=== PATIENT | male | born 1980 | race Caucasian/White ===

== ENCOUNTER 2024-07-11 12:14 | Emergency (ER) | payer OTHER, SELFPAY ==
[2024-07-11 12:38] VITALS: BP 135/89; PULSE 67; RESP 16; TEMP 36.9; O2SAT 98; BMI 28.5
--- NOTE | 2024-07-11 12:48 | ED_ITS ---
HPI - General Adult General Chief complaint: Extremity Problem Stated complaint: Finger injury Time Seen by Provider: 07/11/24 12:47 Source: patient and RN notes reviewed Mode of arrival: ambulatory Limitations: no limitations History of Present Illness ED Provider: Henny Bowers PA-C HPI narrative: This is a 18-mivl-ucj-male who presents to the ER with complaints of right fourth digit swelling and drainage. Pt states that several months ago he had burned his finger. Ever since, he has had occasional episodes of increased pain, swelling and drainage. He states that this morning he noticed increased redness, pain, swelling and drainage. No fevers or chills. His tdap is UTD. No other complaints or concerns at this time. MD complaint: Finger swelling Onset (ago): hour(s) Quality: aching Pain Consistency: constant Relieving factors: none Associated symptoms: denies other symptoms Treatments prior to arrival: none Related Data Previous Rx's ?Medication ?Instructions ?Recorded cephalexin 500 mg capsule 500 mg PO QID 5 days #20 caps 07/11/24 doxycycline hyclate 100 mg capsule 100 mg PO BID 5 days #10 caps 07/11/24 Allergies Allergy/AdvReac Type Severity Reaction Status Date / Time Iodinated Contrast Media Allergy Unknown Verified 07/11/24 12:40 [Contrast Dye] Review of Systems Review of Systems: Yes all other systems are reviewed and are negative [facility] Social History Social History Advance Directives: No Advance Directives Information Provided: No Physical Exam ED Vital Signs: Vital Signs - 24 hr 07/11/24 12:38 Temperature 98.4 F Pulse Rate 67 Respiratory Rate 16 Blood Pressure 135/89 Pulse Oximetry 98 Oxygen Delivery Method Room Air BMI result Body Mass Index 28.5 Const Other: General: Awake, alert, and oriented X3. No acute distress. HEENT: Normal inspection CVS: Normal heart rate and rhythm. Pulses normal. Respiratory: No respiratory distress Skin: R fourth digit, alonog the naialbed, there is slight edema and erythema, most pronouced at the laterral nailborder, actively draining. Neuro: Oriented X 3. No motor deficit. No sensory deficit. Medications Administered Discontinued Medications Generic Name Dose Route Start Last Admin Trade Name Freq PRN Reason Stop Dose Admin Cephalexin HCl 500 mg 07/11/24 12:58 07/11/24 13:19 Cephalexin 500 Mg Capsule PO 07/11/24 12:59 500 mg ONCE ONE Administration Doxycycline Monohydrate 100 mg 07/11/24 12:58 07/11/24 13:19 Doxycycline Monohydrate 100 Mg Capsule PO 07/11/24 12:59 100 mg ONCE ONE Administration Medical Decision Making Medical Decision Making [facility] Narrative: 43 y/o M here with R 4th digit swelling and drainage since this AM. Pt has had recurent nailbed infections that come and go according to patient. On arrival VSS. Nailbed is erythematous and mildly edematous with purulent green drainage expressed from the lateral nail border. DDx including paronychia, cellulitis, contact dermatitis. Less likely oosteomyelitis. Finger is already draining > no area of fluctuance to drain today. Will tx w doxycycline. Given return preca utions. Stable for d/c. Differential Diagnosis Differential Diagnoses: The differential diagnosis associated with the presentation includes see above Discharge Plan Discharge Clinical Impression: Paronychia of finger Patient Disposition: Home, Self-Care Instructions: Paronychia (ED), Cellulitis (ED) Additional Instructions: You were seen in the emergency department due to finger infection. You need to soak your finger multiple times a day with warm soapy water. Keep fingernail covered while you are at work. Take prescribed antibiotic as directed. Keflex to be taken 4 times a day, doxycycline twice a day. If any new or worsening symptoms occur including but not limited to worsening redness, swelling, please seek emergent care. Prescriptions: New doxycycline hyclate 100 mg capsule 100 mg PO BID 5 Days Qty: 10 0RF cephalexin 500 mg capsule 500 mg PO QID 5 Days Qty: 20 0RF Interventions: ED Discharge Assessment Last Done: 07/11/24 13:19 Discharge Date/Time: 07/11/24 13:20 Print Language: Turkmen
[2024-07-11 13:19] VITALS: BP 135/89; PULSE 67; RESP 16; TEMP 36.9; O2SAT 98
[2024-07-11] MEDS: Doxycycline Monohydrate 100 MG CAPSULE PO (13:19)
[2024-07-11] MEDS: cephALEXin 500 MG CAPSULE PO (13:19)
--- OUTSIDE RECORDS SUMMARY | 2024-07-11 16:12 | XMS_ITS | Encounter Summary ---
Author Organization [facility] Address [address] [place] [address] Care Team Providers Care Reverberatory Furnace Supervisor Name Role Phone Wong Prater MD Primary Care Provider [phone] Reason for Referral * Consultation (Routine) - Authorized Specialty Diagnoses / Procedures Referred By Contac t Referred To Contact Otolaryngology Diagnoses Post-nasal drip Dayna Stone PA [address], [place] Phone: tel: fax: [facility] [address] [place] [address] Phone: tel: fax: Referral ID Status Reason Start Date Expiration Date Visits Requested Visits Authorized [id number] Authorized Specialty Services Required 06/26/2024 06/26/2025 1 1 * Consultation (Routine) - Denied Specialty Diagnoses / Procedures Referred By Contac t Referred To Contact Internal Medicine Diagnoses Hydrocele in adult Dayna Stone PA [address], [place] Phone: tel: fax: Dayna Stone PA [address], [place] Phone: tel: fax: Referral ID Status Reason Start Date Expiration Date V isits Requested Visits Authorized [id number] Denied Specialty Services Required 06/26/2024 06/26/2025 1 0 * Consultation (Routine) - Authorized Specialty Diagnoses / Procedures Referred By George rogers Referred To Contact Orthopaedics Diagnoses Neck pain Dayna Stone PA [address] [place] [address] Phone: tel: fax: [facility] [address] [facility] [address] [place] [address] Phone: tel: fax: Referral ID Status Reason Start Date Expiration Date Visits Requested Visits Authorized [id number] Authorized Specialty Services Required 06/26/2024 06/26/2025 1 1 Reason for Visit * Reason Comments Anxiety Encounter Details Date Type Department Care Team (Late st Contact Info) Description 06/25/2024 11:00 AM EST Office Visit Adult Medicine - [place] [address] [place] [address] Dayna Stone PA [address] [place] [address] Anxiety (Primary Dx); Shortness of breath; Acute intractable tension-type headache; Neck pain; Post-nasal drip; Hydrocele in adult Social History Tobacco Use Types Packs/Day Years Used Date Smoking Tobacco: Never Smokeless Tobacco: Current Tobacco Cessation:Ready to Q uit: Not Asked; Counseling Given: Not Answered Alcohol Use Standard Drinks/Week Comments Not Currently 0 (1 standard drink = 0.6 oz pur e alcohol) Sex and Gender Information Value Date Recorded Sex Assigned at Not on file Legal Sex Male 7:24 AM EST Gender Identity Not on file Sexual Orientation Not on file documented as of this encounter Last Filed Vital Signs Vital Sign Reading Time Taken Comments Blood Pressure 120/84 06/25/2024 10:52 AM EST Pulse 76 06/25/2024 10:52 AM EST Temperature 36.7 ??C (98 ??F) 06/25/2024 10:52 AM EST Respiratory Rate - - Oxygen Saturation - - Inhaled Oxygen Concentration - - Weight 98.4 kg (217 lb) 06/25/2024 10:52 AM EST Height 188 cm (6' 2 ) 06/25/2024 10:52 AM EST Body Mass Index 27.86 06/25/2024 10:52 AM EST documented in this encounter Progress Notes * ABDON Morejon - 06/25/2024 11:00 AM ESTAddended by: DAYNA STONE on: 06/25/2024 12:49 PM Modules accepted: Level of Service * ABDON Morejon - 06/25/2024 11:00 AM ESTAddended by: DAYNA STONE on: 06/26/2024 04:39 PM Modules accepted: Orders * ABDON Morejon - 06/25/2024 11:00 AM EST CHIEF COMPLAINT: Anxiety IDENTIFIER:Sushil Schmidt is a 43 y.o. old male. HPI: 43-year-old male presenting with chief complaint of anxiety. Patient states ongoing for a while, states he has been having panic attacks since in his 20s. But states he has not had a panic attack in a while. He believes his anxiety has been triggered by recent life stressors. In March he broke his ankle and was advised to stay out of work for 6 months, he states he stayed home for 1 month thenreturned to work due to financial concerns. 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 He recently underwent allergy testing and states it was positive for mold. He states he has been waking up every morning with pressure behind his eyes and in his nose, brain fog, and headaches that start in the back of his head and feel like tension. He states it feels like it starts in the back of his neck and radiates up. Denies throbbing, denies worsening withchange in position. He also notes he has had some difficulty breathing, describes it as a heavy burning breathing feeling in his chest. He notes that he has been around family members who were sick with the flu, and RSV, however he did not develop any symptoms. Patient declines daily anxiety medication, states he thinks he would benefit from something that isas needed, mentions Ativan. Patient does see a therapist regularly, and informs that they have discussed seeing med provider through their practice. Patient states he does not want to become reliant on a daily antianxiety medication. He also notes that he has not had a panic attack in a long time but just wants to have something on hand if they occur. With everything that is been going on recently he feels like his anxiety has been triggered, but talking with his therapist has helped a great deal. He would also like a workup to assess for mold exposure or other viral illness to see if this could be the trigger to his recent increase in anxiety. 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 Social History Tobacco Use Smoking status: Never Smokeless tobacco: Current Substance Use Topics Alcohol use: Not Currently Drug use: No FAMILY HISTORY: Family History Problem Relation Name Age of Onset Diabetes Mother Schizophrenia Mother Hypertension Father Other (Other: raynauds) Father No Known Problems Sister No Known Problems Brother Kidney failure Maternal Grandmother Dementia Paternal Grandmother COPD Paternal Grandfather No Known Problems Brother No Known Problems Brother MEDICATIONS: There are no discontinued medications. ACTIVE MEDICATIONS: Outpatient Medications Marked as Taking for the 06/25/24 encounter (Office Visit) with ABDON Morejon Medication Sig Dispense Refill cetirizine HCl (CETIRIZINE ORAL) Take by mouth as needed. - Oral cyclobenzaprine (FLEXERIL) 5 mg tablet Take 1 Tablet by mouth every evening for 30 days. - Oral fluticasone propionate (FLONASE) 50 mcg/actuation nasal spray Administer 2 sprays into each nostril1 (one) time each day. ibuprofen (ADVIL,MOTRIN) 600 mg tablet Take 1 Tab by mouth every 8 hours as needed for Pain for up to 30 days. ALLERGIES: Allergies Allergen Reactions Iodinated Contrast Media Hives Difficulty breathing Levonorgestrel-Ethinyl Estrad Runny nose Other Itching Pollen Extracts Runny nose PHYSICAL EXAM: Blood pressure 120/84, pulse 76, temperature 36.7 ??C (98 ??F), temperature source Temporal, height1.88 m (74 ), weight 98.4 kg (217 lb). Wt Readings from Last 5 Encounters: 06/25/24 98.4 kg (217 lb) 04/04/24 96.6 kg (213 lb) 02/19/24 97.5 kg (215 lb) 06/06/23 99.3 kg (219 lb) 06/10/22 102 kg (224 lb 9.6 oz) Physical Exam: Gen: well developed, well nourished, no distress Head: normal cephalic Eyes: eyes clear, ocular motors intact, no erythema or discharge Nose: no discharge Neck: full range of motion, no significant lymphadenopathy or masses Lungs: clear to auscultation, good aeration, no wheezing, rales, or rhonchi auscultated Heart: normal rate and rhythm, normal S1S2, no significant murmur IMPRESSION: 43-year-old male presenting with chief complaint of anxiety and concerns for exposure to mold and viral illness. History is significant for recent life stressors. Physical exam reveals no findings. Blood work and imaging ordered for further workup. ICD-10-CM ICD-9-CM 1. Anxiety F41.9 300.00 2. Shortness of breath R06.02 786.05 XR Chest 2 Views HLA DRB1,3,4,5, DQB1 mold test CBC and differential HLA DRB1,3,4,5, DQB1 mold test [id number], RSV, Influenza A and B qualitative RT-PCR 3. Acute intractable tension-type headache G44.201 339.10 XR Cervical Spine 4-5 Views PLAN: 1. Anxiety Discussed risks and benefits of SSRI versus benzodiazepine. Suggested Zoloft as daily medication, advised symptoms seem consistent with ongoing anxiety, propose that he may benefit from a daily medication for management of symptoms. Also discussed possible referral to psychiatry for med management if patient insists on Ativan prescription for as needed basis. Patient will continue with current therapy sessions and discuss following up with practices medication provider. 2. Shortness of breath Lungs are clear on exam, chest x-ray ordered for further evaluation and to rule out signs of pneumonia. RSV and COVID swab sent to lab to rule out for viral etiology. Will call patient with results 3. Headache Given patient describes origin of headache being the cervical spine, will order imaging to look forany bony or degenerative changes. Will review x-rays and call patient with results, will discuss treatment plan based on results. For this encounter, I personally performed, face to face and oer-qsbu-bb-face services for 68 minutes that include: -Review and update of allergies, PMH, problem list and medications.changes was reconciled with the patient/family/parent/guardian. - Medical appropriate examination - Care planning through shared decision making with counseling for plan of care, risk/benefit of care plan and follow-up recommendations - Documentation of clinical information in electronic health record. Orders Placed This Encounter Procedures [id number], RSV, Influenza A and B qualitative RT-PCR XR Cervical Spine 4-5 Views XR Chest 2 Views HLA DRB1,3,4,5, DQB1 mold test CBC and differential No orders of the defined types were placed in this encounter. Treatment goals, plans and potential barriers to meeting goals was discussed and above noted care plan agreed upon by the patient/parent/guardian. Notes accessible to the patient on the [employer] online portal if enabled. documented in this encounter Plan of Treatment Upcoming Encounters Date Type Department Care Team (Late st Contact Info) Description 08/27/2024 1:30 PM EDT Appointment Endoscopy [address] [place] [address] Nathanael Pringle MD [address] [id number] Scheduled Orders Name Type Priority Associated Diagnoses Orde r Schedule HLA DRB1,3,4,5, DQB1 mold test Lab Routine Shortness of breath 1 Occurrences starting 06/25/2024 until 06/25/2025 Scheduled Referrals Name Type Priority Associated Diagnoses Order Schedule Ambulatory referral to Orthopedic Outpatient Referral Routine Neck pain 1 Occurrences starting 06/26/2024 until 06/26/2025 Ambulatory referral to General Surgery Outpatient Referral Routine Hydrocele in adult 1 Occurrences starting 06/26/2024 until 06/26/2025 Ambulatory referral to ENT Outpatient Referral Routine Post-nasal drip 1 Occurrences starting 06/26/2024 until 06/26/2025 documented as of this encounter Procedures Procedure Name Priority Date/Time Associated Diagnosis Comments [id number], RSV, FLU A AND B QUALITATIVE RT-PCR, LOCAL REFERENCE LAB Routine 06/25/2024 12:07 PM EST Shortness of breath documented in this encounter Results * XR Cervical Spine 4-5 Views (06/25/2024 1:05 PM EST) Anatomical Region Laterality Modality Spine, C-spine Radiographic Vanessa ging 06/25/2024 4:54 PM EST Impressions 06/25/2024 4:56 PM EST Spondylosis and neural foraminal narrowing as described. -------- FINAL REPORT -------- Dictated By: Fay Bryant Dictated Date: 06/25/2024 16:54 ET Assigned Physician: Fay Bryatn Reviewed and Electronically Signed By: Fay Bryant Signed Date: 06/25/2024 16:56 ET Workstation ID: [id number] Transcribed By: Self Edit Transcribed Date: 06/25/2024 16:54 ET Narrative 06/25/2024 4:56 PM EST CERVICAL SPINE, 4 VIEWS HISTORY: ??Headache, tension type. FINDINGS: There is normal alignment of the cervical spine. ??No fracture or dislocation is seen. The paravertebral soft tissues are unremarkable. There is mild disc space narrowing with endplate spurring at C4-5, C5-6, and C6- 7. There is bilateral moderate neural foraminal narrowing from osteophytes at C3-4, C4-5, C5-6, and C6-7. Procedure Note Fay Bryant MD - 06/25/2024 CERVICAL SPINE, 4 VIEWS HISTORY: Headache, tension type. FINDINGS: There is normal alignment of the cervical spine. No fracture ordislocation is seen. The paravertebral soft tissues are unremarkable. There is mild disc space narrowing with endplate spurring at C4-5, C5-6,and C6- 7. There is bilateral moderate neural foraminal narrowing from osteophytes atC3-4, C4-5, C5-6, and C6-7. IMPRESSION: Spondylosis and neural foraminal narrowing as described. -------- FINAL REPORT -------- Dictated By: Fay Bryant Dictated Date: 06/25/2024 16:54 ET Assigned Physician: Fay Bryant Reviewed and Electronically Signed By: Fay Bryant Signed Date: 06/25/2024 16:56 ET Workstation ID: [id number] Transcribed By: Self Edit Transcribed Date: 06/25/2024 16:54 ET Dayna [facility] IMG XR PROCEDURES Final Result * XR Chest 2 Views (06/25/2024 1:05 PM EST) Anatomical Region Laterality Modality Body Radiographic Vanessa ging 06/25/2024 1:18 PM EST Impressions 06/25/2024 1:19 PM EST No acute pulmonary pathology. -------- FINAL REPORT -------- Dictated By: Fay Bryant Dictated Date: 06/25/2024 13:18 ET Assigned Physician: Fay Bryant Reviewed and Electronically Signed By: Fay Bryant Signed Date: 06/25/2024 13:19 ET Workstation ID: [id number] Transcribed By: Self Edit Transcribed Date: 06/25/2024 13:18 ET Narrative 06/25/2024 1:19 PM EST CHEST, TWO VIEWS HISTORY: ?? Shortness of breath. TECHNIQUE: Frontal and lateral views of the chest. PRIOR: None. FINDINGS: The lungs are clear. No pleural effusion is seen. No pneumothorax is seen. The cardiac diameter is within normal limits. No acute or aggressive appearing bony abnormalities are seen. ?? Procedure Note Fay Bryant MD - 06/25/2024 CHEST, TWO VIEWS HISTORY: Shortness of breath. TECHNIQUE: Frontal and lateral views of the chest. PRIOR: None. FINDINGS: The lungs are clear. No pleural effusion is seen. No pneumothorax is seen. The cardiac diameter is within normal limits. No acute or aggressive appearing bony abnormalities are seen. IMPRESSION: No acute pulmonary pathology. -------- FINAL REPORT -------- Dictated By: Fay Bryant Dictated Date: 06/25/2024 13:18 ET Assigned Physician: Fay Bryant Reviewed and Electronically Signed By: Fay Bryant Signed Date: 06/25/2024 13:19 ET Workstation ID: [id number] Transcribed By: Self Edit Transcribed Date: 06/25/2024 13:18 ET Dayna [facility] IMG XR PROCEDURES Final Result * [id number], RSV, Influenza A and B qualitative RT-PCR (06/25/2024 12:07 PM EST) SARS COV-2 Not Detected Not Detected LAB MOLECULAR DIAGNOSTICS METHOD 06/25/2024 11:18 PM EST [facility] Comment: Disclaimer: The manner in which this information is used to guide patient care is the responsibility of the healthcare provider. Testing was performed using the [employer] m SARS-CoV-2 test. This test has been authorized by FDA under an Emergency Use Authorization (EUA). This test is only authorized for the duration of time the declaration that circumstances exist justifying the authorization of the emergency use of in vitro diagnostic tests for detection of SARS-CoV-2 virus and/or diagnosis of COVID-19 infection under section 564(b)(1) of the Act, 21 U.S.C. 360bbb- 3(b)(1), unless the authorization is terminated or revoked sooner. Fact sheet for Healthcare Providers can be found at: https://www.fda.gov/media/521070/download Fact sheet for Patients can be found at: https://www.fda.gov/media/072325/download Influenza A PCR Not Detected Not Detected LAB MOLECULAR DIAGNOSTICS METHOD 06/25/2024 11:18 PM EST [facility] Influenza B PCR Not Detected Not Detected LAB MOLECULAR DIAGNOSTICS METHOD 06/25/2024 11:18 PM EST [facility] RSV PCR Not Detected Not Detected LAB MOLECULAR DIAGNOSTICS METHOD 06/25/2024 11:18 PM EST [facility] Swab Nasopharyngeal structure / Unknown Non-blood Collection / Unknown 06/25/2024 12:07 PM EST 06/25/2024 12:07 PM EST us Dayna [facility] LAB MICROBIOLOGY - GENERAL ORDER LUZ Final Result [facility] [address] [place] [address], documented in this encounter Visit Diagnoses Diagnosis Anxiety- Primary Anxiety state, unspecified Shortness of breath Acute intractable tension-type headache Neck pain Cervicalgia Post-nasal drip Postnasal drip Hydrocele in adult Acute intractable tension-type headache Shortness of breath documented in this encounter Additional Health Concerns Infection Onset Date Last Indicated Resolved Time Respiratory Rule-Out 06/25/2024 06/25/2024 025 11:18 PM EST COVID-19 Rule-Out 06/25/2024 06/25/2024 06/25/2024 11:18 PM EST documented as of this encounter Care Teams Reverberatory Furnace Supervisor Relationship Specialty Start Date End Date Wong Prater MD [address] [place] [id number] PCP - General Internal Medicine 12/10/20 documented as of this encounter
--- OUTSIDE RECORDS SUMMARY | 2024-07-11 16:12 | XMS_ITS | Encounter Summary ---
Author Organization [facility] Address [address] [place] [address] Care Team Providers Care Irrigation District Manager Name Role Phone Wong Prater MD Primary Care Provider [phone] Reason for Visit * Reason Onset Date Comments Allergies 06/25/2024 Encounter Details Date Type Department Care Team (Late st Contact Info) Description 06/25/2024 Telephone Adult [facility] [address] [place] [phone] Wong Prater MD [address] [place] [address] Allergies Social History Tobacco Use Types Packs/Day Years Used Date Smoking Tobacco: Never Smokeless Tobacco: Current Alcohol Use Standard Drinks/Week Comments Not Currently 0 (1 standard drink = 0.6 oz pur e alcohol) Sex and Gender Information Value Date Recorded Sex Assigned at Not on file Legal Sex Male 7:24 AM EST Gender Identity Not on file Sexual Orientation Not on file documented as of this encounter Progress Notes * Lynnette Yi - 06/25/2024 4:21 PM EST Removed * Chela Katz - 06/25/2024 12:26 PM EST Please take the control off of pts allergies documented in this encounter Plan of Treatment Upcoming Encounters Date Type Department Care Team (Late st Contact Info) Description 08/27/2024 1:30 PM EDT Appointment [facility] Endoscopy [address] [place] [address] Nathanael Pringle MD [address] [address] documented as of this encounter Visit Diagnoses Not on filedocumented in this encounter Additional Health Concerns Infection Onset Date Last Indicated Resolved Time Respiratory Rule-Out 06/25/2024 06/25/2024 025 11:18 PM EST COVID-19 Rule-Out 06/25/2024 06/25/2024 06/25/2024 11:18 PM EST documented as of this encounter Care Teams Irrigation District Manager Relationship Specialty Start Date End Date Wong Prater MD [address] [place] [address] PCP - General Internal Medicine 12/10/20 documented as of this encounter
--- OUTSIDE RECORDS SUMMARY | 2024-07-11 16:12 | XMS_ITS | Encounter Summary ---
Author Organization [facility] Address [address] [place] [address] Care Team Providers Care Payment Specialist Name Role Phone Wong Prater MD Primary Care Provider [phone] Encounter Details Date Type Department Care Team (Latest Contact Info) Description 06/25/2024 12:53 PM EST - 06/25/2024 11:59 PM EST Hospital Encounter [facility] - [address] [address] Acute intractable tension-type headache Discharge Disposition: Home or Self Care Social History Tobacco Use Types Packs/Day Years [...] on file documented as of this encounter Medications at Time of Discharge cetirizine HCl (CETIRIZINE ORAL) Take by mouth as needed. - Oral cyclobenzaprine (FLEXERIL) 5 mg tablet Take 1 Tablet by mouth every evening for 30 days. - Oral fluticasone propionate (FLONASE) 50 mcg/actuation nasal spray Administer 2 sprays into each nostril 1 (one) time each day. 08/17/2023 ibuprofen (ADVIL,MOTRIN) 600 mg tablet Take 1 Tab by mouth every 8 hours as needed for Pain for up to 30 days. 11/28/2019 documented as of this encounter Discharge Disposition Disposition Code Departure Means Destination Home or Self Care documented in this encounter Plan of Treatment Upcoming Encounters Date Type Department Care Team (Late st Contact Info) Description 08/27/2024 1:30 PM EDT Appointment [facility] Endoscopy [address] [place] [address] Nathanael Pringle MD [address] [address] documented as of this encounter Procedures Procedure Name Priority Date/Time Associated Diagnosis Comments XR CERVICAL SPINE 4-5 VIEWS Routine 06/25/2024 1:05 PM EST Acute intractable tension-type headache documented in this encounter Results * XR [...] Signed Date: 06/25/2024 16:56 ET Workstation ID: [id number] Transcribed By: Self Edit Transcribed Date: 06/25/2024 [...] Signed Date: 06/25/2024 16:56 ET Workstation ID: [id number] Transcribed By: Self Edit Transcribed Date: 06/25/2024 16:54 ET us Dayna COPPOLA IMG XR PROCEDURES Final Result documented in this encounter Visit Diagnoses Diagnosis Acute intractable tension-type headache documented in this encounter Additional Health Concerns Infection Onset Date Last Indicated Resolved Time Respiratory Rule-Out 06/25/2024 06/25/2024 025 11:18 PM EST COVID-19 Rule-Out 06/25/2024 06/25/2024 06/25/2024 11:18 PM EST documented as of this encounter Care Teams Payment Specialist Relationship Specialty Start Date End Date Wong Prater MD [address] [place] [address] PCP - General Internal Medicine 12/10/20 documented as of this encounter
--- OUTSIDE RECORDS SUMMARY | 2024-07-11 16:12 | XMS_ITS | Encounter Summary ---
Author Organization [facility] Address [address] [place] [address] Care Team Providers Care Quantitative Manager Name Role Phone Wong Prater MD Primary Care Provider [phone] Reason for Visit * Reason Onset Date Comments Referral to Mental Health Therapy 05/07/2024 Encounter Details Date Type Department Care Team (Late st Contact Info) Description 05/07/2024 Telephone Adult Medicine [facility] [address] [place] [address] Wong Prater MD [address] [place] [address] Referral to Mental Health Therapy Social History Tobacco Use Types Packs/Day Years [...] as of this encounter Progress Notes * Chela Mahajan MA - 05/09/2024 9:06 AM EST Pt called and informed of this message. * Wong Prater MD - 05/08/2024 7:16 PM EST Tell pt we do not have specific location to refer him. Referrals usually will just send him letter advising him to find a provider. Almost all insurances do not need referral. He should call his insurance to find a provider. * Chela Mahajan MA - 05/08/2024 11:07 AM EST Images from the original note were not included. * Tricia Gil - 05/07/2024 11:00 AM EST Referral Request: What insurance does the patient have today? [facility] Referrals cannot be processed if the insurance is not accurate. If the insurance listed above in red is NO BILLING INFORMATION FOUND FOR THIS ENCOUTNER The patients correct insurance must be obtained and registered in [facility] or their referral can not be processed. Is this a retro request? no. If yes for what date of service do you need the retro referral? not applicable Who is calling to request this referral? pt If the caller is not the patient, what is their name? not applicable Ask the patient WHO referred them to this specialty: Patient self referred FIRST and LAST NAME of SPECIALIST PATIENT is seeing: any provider for Mental Health Therapy What specialty is this? Mental Health Therapy DIAGNOSIS Patient is being seen for (Not a body part or a procedure): a lot of anxiety and panic attack Have you seen this SPECIALIST for this PROBLEM/DX before? If YES, when? No Have you checked REVIEW or the APPT DESK to see if this referral has already been done or has visits left? no Is this visit: Initial Visit Address of Specialist: any Phone # of Specialist: Fax #: (if applicable): Does patient have an appointment scheduled?: no Date of appointment- (including a retro-request): Is this appointment related to: Not MVA, worker compensation, or surgery related documented in this encounter Plan of Treatment Upcoming Encounters Date Type Department Care Team (Late st Contact Info) Description 08/27/2024 1:30 PM EDT Appointment [facility] Endoscopy [address] [place] [address] Nathanael Pringle MD [address] [address] documented as of this encounter Visit Diagnoses Not on filedocumented in this encounter Additional Health Concerns Infection Onset Date Last Indicated Resolved Time Respiratory Rule-Out 06/25/2024 06/25/2024 025 11:18 PM EST COVID-19 Rule-Out 06/25/2024 06/25/2024 06/25/2024 11:18 PM EST documented as of this encounter Care Teams Quantitative Manager Relationship Specialty Start Date End Date Wong Prater MD [address] [place] [address] PCP - General Internal Medicine 12/10/20 documented as of this encounter
--- OUTSIDE RECORDS SUMMARY | 2024-07-11 16:12 | XMS_ITS | Clinical Summary ---
Author Organization [facility] Address [address] [place] [address] Phone Care Team Providers Care Charging Operator Name Role Phone Wong Prater MD Primary Care Provider [phone] Allergies Active Allergy Reactions Criticality Noted Date Comments Other Itching 05/13/2022 Pollen Extracts Runny nose 06/13/2019 Medications fluticasone propionate (FLONASE) 50 mcg/actuation nasal spray Administer 2 sprays into each nostril 1 (one) time each day. 4 Active ibuprofen (ADVIL,MOTRIN) 600 mg tablet Take 1 Tab by mouth every 8 hours as needed for Pain for up to 30 days. 0 Active cetirizine HCl (CETIRIZINE ORAL) Take by mouth as needed. - Oral Active cyclobenzaprine (FLEXERIL) 5 mg tablet Take 1 Tablet by mouth every evening for 30 days. 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 Changing skin lesion 08/09/2017 Encounters Date Type Department Care Team Description 06/25/2024 12:54 PM EST - 06/25/2024 11:59 PM EST Hospital Encounter [facility]al[facility] [address] [place] [address] Shortness of breath Discharge Disposition: Home or Self Care 06/25/2024 12:53 PM EST - 06/25/2024 11:59 PM EST Hospital Encounter [address] [address] Acute intractable tension-type headache Discharge Disposition: Home or Self Care 06/25/2024 11:00 AM EST Office Visit [address] [address] Dayna Stone PA Anxiety (Primary Dx); Shortness of breath; Acute intractable tension-type headache; Neck pain; Post-nasal drip; Hydrocele in adult 06/25/2024 Telephone Adult [address] [address] Wong Prater MD Allergies 05/14/2024 Telephone Adult [address] [address] Wong Prater MD Anxiety 05/07/[address] [phone] Wong Prater MD Referral to Mental Health Therapy from Last 3 Months Immunizations Name Administration Dates Next Due Tdap Tetanus diptheria acell ular pertussis (Boostrix; Adacel) 7yo and older 05/17/2019 Surgical History Surgery Date Site/Laterality Comments APPENDECTOMY PROCEDURE: [place] APPENDECTOMY OTHER SURGICAL HISTORY 1998 PROCEDURE: ---- OTHER ----; COMMENT: Dr. Dannie morris [facility] WISDOM TOOTH EXTRACTION PROCEDURE: HISTORICAL WISDOM TEETH EXTRACTION Medical History Medical History Date Comments Left varicocele DX:Left varicoce le Family History Medical History Relation Name Comments No Known Problems Brother 1 No Known Problems Brother 2 No Known Problems Brother 3 Hypertension Father Other: raynauds Father Kidney failure Maternal Grandmother Diabetes Mother Schizophrenia Mother COPD Paternal Grandfather Dementia Paternal Grandmother No Known Problems Sister Relation Name Status Comments Brother 1 Alive Brother 2 Alive Brother 3 Alive Father Alive Maternal Grandfather Maternal Grandmother Mother Alive Paternal Grandfather Alive Paternal Grandmother Alive Sister Alive Social History Tobacco Use Types Packs/Day Years [...] on file Sexual Orientation Not on file Obstetrics History Last Filed Vital Signs Vital Sign Reading Time Taken Comments Blood Pressure 120/84 06/25/2024 10:52 AM EST Pulse 76 06/25/2024 10:52 AM EST Temperature 36.7 ??C (98 ??F) 06/25/2024 10:52 AM EST Respiratory Rate - - Oxygen Saturation 98% 04/04/2024 1:03 PM EST Inhaled Oxygen Concentration - - Weight 98.4 kg (217 lb) 06/25/2024 10:52 AM EST Height 188 cm (6' 2 ) 06/25/2024 10:52 AM EST Body Mass Index 27.86 06/25/2024 10:52 AM EST Plan of Treatment Upcoming Encounters Date Type Department Care Team (Late st Contact Info) Description 08/27/2024 1:30 PM EDT Appointment [facility] Endoscopy [address] [place] [phone] Nathanael Pringle MD [address] [address] Health Maintenance Due Date Last Done Comments COVID-19 Vaccine (#1) 1986 Hepatitis B Vaccines (1 of 3 - 19+ 3-dose series) 2000 Pneumococcal Vaccine: Pediat rics (0 to 5 Years) and At-Risk Patients (6 to 64 Years) (1 of 2 - PCV) 2000 Depression Screening 04/09/2022 Social Influencers of Health Screening 04/09/2022 Influenza Vaccine (#1) 2023 Cholesterol Screening (Lipid Panel) 06/06/2028 06/06/2023 DTaP,Tdap,and Td Vaccines (2 - Td or Tdap) 05/17/2029 05/17/2019 HIV Screening Completed 06/01/2022 Hepatitis C Screening Completed 06/01/2022 HIB Vaccines Aged Out No longer eligi ble based on patient's age to complete this topic HPV Vaccines Aged Out No longer eligi ble based on patient's age to complete this topic Hepatitis A Vaccines Aged Out No long er eligible based on patient's age to complete this topic IPV Vaccines Aged Out No longer eligi ble based on patient's age to complete this topic MMR Vaccines Aged Out No longer eligi ble based on patient's age to complete this topic Meningococcal ACWY Vaccine Aged Out N o longer eligible based on patient's age to complete this topic Meningococcal B Vacine Aged Out No lo nger eligible based on patient's age to complete this topic RSV Immunization Patients Un jarad 20 months Aged Out No longer eligible b ased on patient's age to complete this topic Varicella Vaccines Aged Out No longer eligible based on patient's age to complete this topic Procedures Procedure Name Priority Date/Time Associated Diagnosis Comments XR CERVICAL SPINE 4-5 VIEWS Routine 06/25/2024 1:05 PM EST Acute intractable tension-type headache XR CHEST 2 VIEWS Routine 06/25/2024 1:05 PM EST Shortness of breath CBC WITH AUTO DIFFERENTIAL Routine 06/25/2024 12:47 PM EST Shortness of breath HLA-B27 ANTIGEN Routine 06/25/2024 12:47 PM EST Shortness of breath CBC AND DIFFERENTIAL Routine 06/25/2024 12:47 PM EST Shortness of breath [id number], RSV, FLU A AND B QUALITATIVE RT-PCR, LOCAL REFERENCE LAB Routine 06/25/2024 12:07 PM EST Shortness of breath LIPID PANEL Routine 06/06/2023 HEPATITIS C SCREENING Routine 06/01/2022 HIV SCREENING Routine 06/01/2022 from Last 3 Months or Most Recently Relevant to Health Maintenance Results * XR Cervical Spine 4-5 Views [...] Signed Date: 06/25/2024 16:56 ET Workstation ID: [id number] Transcribed By: Self Edit Transcribed Date: 06/25/2024 [...] Signed Date: 06/25/2024 16:56 ET Workstation ID: [id number] Transcribed By: Self Edit Transcribed Date: 06/25/2024 [...] Signed Date: 06/25/2024 13:19 ET Workstation ID: [id number] Transcribed By: Self Edit Transcribed Date: 06/25/2024 [...] Signed Date: 06/25/2024 13:19 ET Workstation ID: [id number] Transcribed By: Self Edit Transcribed Date: 06/25/2024 13:18 ET Dayna COPPOLA IMG XR PROCEDURES Final Result * (ABNORMAL) CBC auto differential (06/25/2024 12:47 PM EST) WBC 6.0 4.8 - 10.8 K/mcL LAB HEMETOLOGY METHOD 06/25/2024 2:47 PM [facility] RBC 4.90 4.50 - 5.50 M/mcL LAB HEMETOLOGY METHOD 06/25/2024 2:47 PM [facility] Hemoglobin 14.3 13.5 - 17.5 g/dL LAB HEMETOLOGY METHOD 06/25/2024 2:47 PM [facility] Hematocrit 44.8 42.0 - 54.0 % LAB HEMETOLOGY METHOD 06/25/2024 2:47 PM [facility] MCV 92.0 79.0 - 98.0 FL LAB HEMETOLOGY METHOD 06/25/2024 2:47 PM [facility] MCH 29.4 27.0 - 32.0 pcg LAB HEMETOLOGY METHOD 06/25/2024 2:47 PM [facility] MCHC 31.9(L) 32.0 - 37.0 g/dL LAB HEMETOLOGY METHOD 06/25/2024 2:47 PM [facility] RDW 12.2 11.0 - 15.0 % LAB HEMETOLOGY METHOD 06/25/2024 2:47 PM [facility] Platelets 257 130 - 400 K/mcL LAB HEMETOLOGY METHOD 06/25/2024 2:47 PM [facility] MPV 10.6 7.0 - 11.0 FL LAB HEMETOLOGY METHOD 06/25/2024 2:47 PM [facility] NRBC 0.0 <1.0 % LAB HEMETOLOGY METHOD 06/25/2024 2:47 PM [facility] NRBC Absolute 0.00 <0.10 K/mcL LAB HEMETOLOGY METHOD 06/25/2024 2:47 PM [facility] Neutrophils Relative 55.7 % LAB HEMETOLOGY METHOD 06/25/2024 2:47 PM [facility] Lymphocytes Relative 35.7 % LAB HEMETOLOGY METHOD 06/25/2024 2:47 PM [facility] Monocytes Relative 5.9 % LAB HEMETOLOGY METHOD 06/25/2024 2:47 PM [facility] Eosinophils Relative 1.7 % LAB HEMETOLOGY METHOD 06/25/2024 2:47 PM [facility] Basophils Relative 0.5 % LAB HEMETOLOGY METHOD 06/25/2024 2:47 PM [facility] Immature Granulocytes Relative 0.5 % LAB HEMETOLOGY METHOD 06/25/2024 2:47 PM [facility] Neutrophils Absolute 3.32 1.50 - 7.00 K/mcL LAB HEMETOLOGY METHOD 06/25/2024 2:47 PM [facility] Lymphocytes Absolute 2.13 1.00 - 5.00 K/mcL LAB HEMETOLOGY METHOD 06/25/2024 2:47 PM [facility] Monocytes Absolute 0.35 0.20 - 1.00 K/mcL LAB HEMETOLOGY METHOD 06/25/2024 2:47 PM [facility] Eosinophils Absolute 0.10 0.00 - 0.50 K/mcL LAB HEMETOLOGY METHOD 06/25/2024 2:47 PM [facility] Basophils Absolute 0.03 0.00 - 0.20 K/mcL LAB HEMETOLOGY METHOD 06/25/2024 2:47 PM [facility] Immature Granulocytes Absolute 0.03 0.00 - 0.03 K/mcL LAB HEMETOLOGY METHOD 06/25/2024 2:47 PM [facility] Blood Venous blood specimen / Unknown Venipuncture / Unknown 06/25/2024 12:47 PM EST 06/25/2024 12:47 PM EST Dayna [facility] LAB BLOOD ORDERABLES Final Resul t [facility] [address] [place] [address], * HLA-B27 antigen (06/25/2024 12:47 PM EST) HLA-B27 Comment SEEBELOW 06/28/2024 9:50 AM EST [facility] Comment: Rare false-positive HLA-B27 results can occur due to cross-reactivity with HLA-B7; therefore, we recommend all positive results be confirmed by an alternative and more specific method (molecular typing). HLA B27 NEGATIVE 06/28/2024 9:50 AM EST [facility] Comment: Test performed at [facility], [address] [place], [place] ??[address] ? [phone] Blood Venous blood specimen / Unknown Venipuncture / Unknown 06/25/2024 12:47 PM EST 06/25/2024 12:47 PM EST [facility] MOLECULAR DIAGNOSTICS ORDERA BLES Final Result Performing Organization Address City/[facility]/ZIP Co de Phone Number [facility] [address] [place] [address] * [id number], RSV, Influenza A and B qualitative RT-PCR (06/25/2024 12:07 PM EST) Pathologist [facility] [place] SARS COV-2 Not Detected Not Detected LAB MOLECULAR DIAGNOSTICS METHOD 06/25/2024 11:18 PM EST [facility] Comment: Disclaimer: The manner in which this information is used to guide patient care is the responsibility of the healthcare provider. Testing was performed using the [employer] m SARS-CoV-2 test. This test has [...] for Healthcare Providers can be found at: https://www.fda.gov/media/749210/download Fact sheet for Patients can be found at: https://www.fda.gov/media/629223/download Influenza A PCR Not Detected Not Detected LAB MOLECULAR DIAGNOSTICS METHOD 06/25/2024 11:18 PM EST [facility] Influenza B PCR Not Detected Not Detected LAB MOLECULAR DIAGNOSTICS METHOD 06/25/2024 11:18 PM [facility] RSV PCR Not Detected Not Detected LAB MOLECULAR DIAGNOSTICS METHOD 06/25/2024 11:18 PM [facility] Swab Nasopharyngeal structure / Unknown Non-blood Collection / Unknown 06/25/2024 12:07 PM EST 06/25/2024 12:07 PM EST [facility] MICROBIOLOGY - GENERAL ORDER LUZ Final Result [facility] [address] [place] [address], * (ABNORMAL) Lipid panel (06/06/2023) [facility] LDL/HDL Ratio 6(A) 0 - 4 Triglycerides 93 0 - 150 mg/dL Cholesterol 167 0 - 200 mg/dL HDL 29(A) >=40 mg/dL LDL Cholesterol 120(A) 0 - 100 mg/dL Blood Venous blood specimen / Unknown Historical Provider LAB BLOOD ORDERABLES Ramona l Result * HIV Screening (06/01/2022) [facility] HIV Screening abstracted Historical Provider HEALTH MAINTENANCE Final Result * Hepatitis C Screening (06/01/2022) [facility] Hepatitis C Screening abstracted us Historical Provider HEALTH MAINTENANCE Final Result from Last 3 Months or Most Recently Relevant to Health Maintenance Insurance [facility] [employer] Care Teams Charging Operator Relationship Specialty Start Date End Date Wong Prater MD [address] [place] [id number] PCP - General Internal Medicine 12/10/20
--- OUTSIDE RECORDS SUMMARY | 2024-07-11 16:12 | XMS_ITS | Encounter Summary ---
Author Organization [facility] [place] [address] Care Team Providers Care Assistive Technology Trainer Name Role Phone Wong Prater MD Primary Care Provider Encounter Details Date Type Department Care Team (Latest Contact Info) Description 06/25/2024 12:54 PM EST - 06/25/2024 11:59 PM EST Hospital Encounter [facility] - [address] [phone] Shortness of breath Discharge Disposition: Home or Self Care Social [...] Info) Description 08/27/2024 1:30 PM EDT Appointment [facility] Endoscopy [address] [place] [address] Nathanael Pringle MD [address] [address] documented as of this encounter Procedures Procedure Name Priority Date/Time Associated Diagnosis Comments XR CHEST 2 VIEWS Routine 06/25/2024 1:05 PM EST Shortness of breath documented in this encounter Results * XR Chest 2 Views (06/25/2024 1:05 PM EST) Anatomical Region Laterality Modality Body Radiographic Vanessa ging 06/25/2024 1:18 PM EST Impressions 06/25/2024 1:19 PM EST No acute pulmonary pathology. -------- FINAL REPORT -------- Dictated By: Fay Bryant Dictated Date: 06/25/2024 13:18 ET Assigned Physician: Fay Bryant Reviewed and Electronically Signed By: Fay Bryant Signed Date: 06/25/2024 13:19 ET Workstation ID: [id number] Transcribed By: Self Edit Transcribed Date: 06/25/2024 [...] Signed Date: 06/25/2024 13:19 ET Workstation ID: [id number] Transcribed By: Self Edit Transcribed Date: 06/25/2024 13:18 ET Dayna COPPOLA IMG XR PROCEDURES Final Result documented in this encounter Visit Diagnoses Diagnosis Shortness of breath documented in this encounter Additional Health Concerns Infection Onset Date Last Indicated Resolved Time Respiratory Rule-Out 06/25/2024 06/25/2024 025 11:18 PM EST COVID-19 Rule-Out 06/25/2024 06/25/2024 06/25/2024 11:18 PM EST documented as of this encounter Care Teams Assistive Technology Trainer Relationship Specialty Start Date End Date Wong Prater MD [address] [place] [address] PCP - General Internal Medicine 12/10/20 documented as of this encounter
== END 2024-07-11 13:20 | disposition home or self-care (01) ==
PROVIDERS: Emergency Provider Emergency Medicine; PCP Pediatrics
DX: L03.011 Cellulitis of right finger (principal); M79.644 Pain in right finger(s)
CPT/HCPCS: 99282; 99283